=== PATIENT | female | born 1955 | race Caucasian/White ===

== ENCOUNTER 2016-10-30 18:04 | Emergency (ER) | payer BC ==
[2016-10-30 18:18] VITALS: BP 123/71
--- NOTE | 2016-10-30 20:00 | UC ---
Skin Complaint HPI - HPI Summary HPI Summary: Patient presents to with CC of tick bite to the left medial calf. She noticed it last evening and was able to dislodge it. Tick likely on skin for less than 24 hours. She was able to bring the tick it and it does not seem to be engorged. She notes to a small erythematous area around where the tick was located with no central clearing or EM rash. She states she was dx with Lyme disease many years ago, but turned out to be sarcoidosis. Denies joint pains, neck pain, KHAN or neuralgia pain. She is otherwise healthy. - History of Current Complaint Chief Complaint: UCSkin Time Seen by Provider: 10/30/16 19:23 Stated Complaint: TICK BITE Hx Obtained From: Patient ?: No Onset/Duration: Sudden Onset Skin Exposure Onset/Duration: Hours Ago Timing: Constant Onset Severity: Mild Current Severity: Mild Pain Intensity: 0 Pain Scale Used: 0-10 Numeric Location: Discrete - medial left calf Character: Redness Aggravating: Nothing Alleviating: Nothing Associated Signs & Symptoms: Positive: Negative Related History: Possible Reaction to: Insect - Allergy/Home Medications Allergies/Adverse Reactions: Allergies Allergy/AdvReac Type Severity Reaction Status Date / Time No Known Allergies Allergy Verified 10/30/16 18:51 Review of Systems Constitutional: Negative Skin: Rash - erythematous area around previous tick bite Respiratory: Negative Cardiovascular: Negative Neurovascular: Negative Musculoskeletal: Negative Neurological: Negative Psychological: Negative All Other Systems Reviewed And Are Negative: Yes PMH/Surg Hx/FS Hx/Imm Hx Previously Healthy: Yes - Surgical History Surgical History: Yes Surgery Procedure, Year, and Place: CHolecystectomy,D&C 2000,APPY APR 2013; - Family History Known Family History: Positive: Unknown - Social History Occupation: Employed Full-time Lives: With Family Alcohol Use: Occasionally Substance Use Type: None Smoking Status (MU): Never Smoked Tobacco Physical Exam Triage Information Reviewed: Yes Appearance: Well-Appearing, No Pain Distress, Well-Nourished Vital Signs: Initial Vital Signs Temp 98.8 F 10/30/16 18:17 Pulse 67 10/30/16 18:17 Resp 16 10/30/16 18:17 BP 123/71 10/30/16 18:17 Pulse Ox 98 10/30/16 18:17 Eye Exam: Normal Eyes: Positive: Conjunctiva Clear Dental Exam: Normal Neck exam: Normal Neck: Positive: Supple, Nontender, No Lymphadenopathy Respiratory Exam: Normal Respiratory: Positive: Chest non-tender, Lungs clear Cardiovascular Exam: Normal Cardiovascular: Positive: RRR Musculoskeletal Exam: Normal Musculoskeletal: Positive: Strength Intact Neurological Exam: Normal Neurological: Positive: Alert Psychological: Positive: Normal Response To Family, Age Appropriate Behavior Skin Exam: Normal Course/Dx - Course Course Of Treatment: Patient presents with tick bite to the medial side of the left calf without EM rash. Tick was brought in and not engorged. Per patient, tick was likely attached for less than 24 hours. Prophylactic dose not recommended to patient based on ISDA guidelines. She is OK with plan. Educated patient on Lyme and information given on prophylactic treatment. - Differential Diagnoses - Skin Complaint Differential Diagnoses: Tick Born Illness, Other - tick bite, lyme, insect, rash - Diagnoses Provider Diagnoses: Tick bite Discharge - Discharge Plan Condition: Stable Disposition: HOME Patient Education Materials: Tick Bite (ED) Referrals: Lalito Orozco MD [Primary Care Provider] - Additional Instructions: Approach to prophylaxis : According to the Infectious Diseases Society of [place] (IDSA) guidelines that recommend antibiotic prophylaxis only in patients who meet all of the following criteria: 1. Attached tick identified as an adult or nymphal I. scapularis tick (deer tick). 2. Tick is estimated to have been attached for 36 hours (by degree of engorgement or time of exposure). 3. Prophylaxis is begun within 72 hours of tick removal. Local rate of infection of ticks with B. burgdorferi is 20 percent if attached for over 48 hours (these rates of infection have been shown to occur in parts of [place], parts of the [facility], and parts of [place] and [place]). If you experience a tick and time of attachment is believed to be less than 36 hours, you may remove the tick with head intact and no need for prophylaxis. If over 36 hours, please come into UC. Prophylactic doxycycline is not recommended for ticks attached less than 36 hours.
== END 2016-10-30 20:01 | disposition home or self-care (01) ==
LOC: UCEAST 18:04
DX: S80.862A Insect bite (nonvenomous), left lower leg, initial encounter (principal)
CPT/HCPCS: 99211; G0463

== ENCOUNTER 2017-02-08 05:19 | Observation (INO) | payer BC ==
[2017-02-08] MEDS ORDERED: NS 0.9% 1000 ML* 1,000 ML IV ONE ×2 (06:01→06:39)
[2017-02-08] MEDS ORDERED: Morphine INJ* 4 MG/ML 1 ML CARPUJECT IV ONE (06:01)
[2017-02-08] MEDS ORDERED: Ondansetron INJ* 2 MG/ML VIAL IV ONE (06:01)
[2017-02-08 06:17] LABS: Hematocrit 39 % (35-47); Hemoglobin 13.5 g/dl (12.0-16.0); Mean Corpuscular HGB Conc 34 g/dl (31-36); Mean Corpuscular Hemoglobin 31 pg (27-31); Mean Corpuscular Volume 91 fL (80-97); Mean Platelet Volume 10 um3 (7.4-10.4); Red Blood Count 4.31 10^6/ul (4.0-5.4); Red Cell Distribution Width 13 % (10.5-15); White Blood Count 10.4 10^3/ul (3.5-10.8)
[2017-02-08 06:31] LABS: Albumin 4.3 g/dL (3.2-5.2); BUN/Creatinine Ratio 20.5 (8-20); Calcium 9.1 mg/dL (8.6-10.3); EGFR African American 104.6 (>60); EGFR Non-African American 81.3 (>60); Globulin 2.3 g/dL (2-4); Potassium 3.7 mmol/L (3.5-5.0); Total Bilirubin 0.4 mg/dL (0.2-1.0); Total Protein 6.6 g/dL (6.4-8.9)
--- NOTE | 2017-02-08 06:51 | ED ---
Monty Mcqueen Benjamin, scribed for Cyndi Mike MD on 02/08/17 at 0607 . HPI Chest Pain - HPI Summary HPI Summary: 61yo female FELIPAA after waking up with sudden onset CP today at 0400 hours. Pt describes the pain at initial onset as 8/10 but now 6/10. Pt had aching pain in her mid sternum that radiates to her back .Denies any pain in arms or neck. Pt wa also diaphoretic and clammy. Pt was given nitro by EMS, which helped partly with her CP. FHX NV. hx of arrhythmia - History of Current Complaint Chief Complaint: EDChestPainROMI Time Seen by Provider: 02/08/17 05:29 Hx Obtained From: Patient Onset/Duration: Started Hours Ago, Still Present Timing: Constant Initial Severity: Moderate Current Severity: Mild Pain Intensity: 5 Pain Scale Used: 0-10 Numeric Chest Pain Location: Mid Sternal Chest Pain Radiates: Yes Chest Pain Radiates To:: Back Character: Dull/Aching Aggravating Factor(s): Nothing Alleviating Factor(s): NTG 123 Associated Signs and Symptoms: Positive: Chest Pain, Diaphoresis, Back Pain - Allergy/Home Medications Allergies/Adverse Reactions: Allergies Allergy/AdvReac Type Severity Reaction Status Date / Time No Known Allergies Allergy Verified 02/08/17 05:24 PMH/Surg Hx/FS Hx/Imm Hx Endocrine/Hematology History: Denies: Hx Diabetes Cardiovascular History: Reports: Other Cardiovascular Problems/Disorders - hx of arrhythmia Denies: Hx Congestive Heart Failure, Hx Hypertension, Hx Pacemaker/ICD Respiratory History: Reports: Other Respiratory Problems/Disorders - sarcoidosis 1988 treated ok since Denies: Hx Asthma GI History: Denies: Other GI Disorders - hx of parasites treated History: Denies: Hx Renal Disease Sensory History: Denies: Hx Hearing Aid Psychiatric History: Denies: Hx Panic Disorder - Cancer History Hx Radiation Therapy: No - Surgical History Surgery Procedure, Year, and Place: CHolecystectomy,D&C 2000,APPApr 2013; Infectious Disease History: No Infectious Disease History: Reports: History Other Infectious Disease - Dysentary 1986 Denies: Traveled Outside the [place] in Last 30 Days - Family History Known Family History: Positive: Cardiac Disease - [place] - Social History Occupation: Employed Full-time Lives: With Family Alcohol Use: Occasionally Substance Use Type: Reports: None Smoking Status (MU): Never Smoked Tobacco Review of Systems Positive: Skin Diaphoresis Eyes: Negative ENT: Negative Positive: Chest Pain Respiratory: Negative Gastrointestinal: Negative Genitourinary: Negative Positive: Myalgia - back pain Skin: Negative Neurological: Negative Psychological: Normal All Other Systems Reviewed And Are Negative: Yes Physical Exam Vital Signs On Initial Exam: Initial Vitals Temp Pulse Resp BP Pulse Ox 97.5 F 76 16 130/75 96 02/08/17 05:22 02/08/17 05:22 02/08/17 05:22 02/08/17 05:22 02/08/17 05:22 - Malinda Coma Scale Coma Scale Total: 15 Diagnostics - Vital Signs Vital Signs Temp Pulse Resp BP Pulse Ox 02/08/17 05:33 98 02/08/17 05:24 97.5 F 76 16 130/75 96 02/08/17 05:22 97.5 F 76 16 130/75 96 - Laboratory Lab Results: Lab Results 02/08/17 02/08/17 02/08/17 Range/Units 05:30 05:30 05:30 WBC 10.4 (3.5-10.8) 10^3/ul RBC 4.31 (4.0-5.4) 10^6/ul Hgb 13.5 (12.0-16.0) g/dl Hct 39 (35-47) % MCV 91 (80-97) fL MCH 31 (27-31) pg MCHC 34 (31-36) g/dl RDW 13 (10.5-15) % Plt Count 219 (150-450) 10^3/ul MPV 10 (7.4-10.4) um3 Neut % (Auto) 77.8 (38-83) % Lymph % (Auto) 12.7 L (25-47) % [place] % (Auto) 8.4 (1-9) % Eos % (Auto) 0.8 (0-6) % Baso % (Auto) 0.3 (0-2) % Absolute Neuts (auto) 8.1 H (1.5-7.7) 10^3/ul Absolute Lymphs (auto) 1.3 (1.0-4.8) 10^3/ul Absolute Monos (auto) 0.9 H (0-0.8) 10^3/ul Absolute Eos (auto) 0.1 (0-0.6) 10^3/ul Absolute Basos (auto) 0 (0-0.2) 10^3/ul Absolute Nucleated RBC 0 10^3/ul Nucleated RBC % 0 Sodium 138 (133-145) mmol/L Potassium 3.7 (3.5-5.0) mmol/L Chloride 106 (101-111) mmol/L Carbon Dioxide 26 (22-32) mmol/L Anion Gap 6 (2-11) mmol/L BUN 15 (6-24) mg/dL Creatinine 0.73 (0.51-0.95) mg/dL Est GFR ( Amer) 104.6 (>60) Est GFR (Non-Af Amer) 81.3 (>60) BUN/Creatinine Ratio 20.5 H (8-20) Glucose 133 H (70-100) mg/dL Lactic Acid 2.7 H* (0.5-2.0) mmol/L Calcium 9.1 (8.6-10.3) mg/dL Total Bilirubin 0.40 (0.2-1.0) mg/dL AST Pending ALT 20 (7-52) U/L Alkaline Phosphatase 53 (34-104) U/L Troponin I 0.00 (<0.04) ng/mL Total Protein 6.6 (6.4-8.9) g/dL Albumin 4.3 (3.2-5.2) g/dL Globulin 2.3 (2-4) g/dL Albumin/Globulin Ratio 1.9 (1-3) Result Diagrams: 02/08/17 05:30 02/08/17 05:30 Lab Statement: Any lab studies that have been ordered have been reviewed, and results considered in the medical decision making process. - Radiology CXR Xray Interpretation: No Acute Changes Radiology Interpretation Completed By: ED Physician - EKG 0531. Cardiac Rate: NL - 70bpm EKG Rhythm: Sinus Rhythm ST Segment: Normal Ectopy: None Chest Pain Course/Dx - Course Course Of Treatment: Reviewed pts medication and allergy lists. Blood pressure noted. pt with elevated lactic acid given that pain radiated to her back will do cta chest abd pelvis and if neg will have pt admitted as an obv - Diagnoses Provider Diagnoses: Chest pain Discharge - Discharge Plan Condition: Stable Disposition: OTHER Discharge Disposition Comment: to be determined signed out to Dr. Wiggins Referrals: Lalito Orozco MD [Primary Care Provider] - The documentation as recorded by the Monty juarez Benjamin accurately reflects the service I personally performed and the decisions made by me, Cyndi Mike MD.
[2017-02-08] MEDS ORDERED: Iohexol 350* (CONTRAST) 500 ML MDV IV ONE (07:36)
--- NOTE | 2017-02-08 08:13 | RAD ---
HISTORY: Chest pain radiating to back COMPARISONS: May 02, 2013 TECHNIQUE: Multiple contiguous axial CT scans were obtained of the chest, abdomen, and pelvis after the administration of intravenous contrast. Coronal and sagittal multiplanar reformations are submitted for review.. Oral contrast was not administered. 3-D volumetric reconstructions of the aorta are also submitted for review FINDINGS: CHEST NECK AND THYROID: The lower neck and thyroid are unremarkable. CHEST WALL: There is no lower cervical, axillary, or supraclavicular lymphadenopathy by size criteria. HEART AND PERICARDIUM: The heart is unremarkable. AORTA AND PULMONARY VASCULATURE: The aorta and pulmonary vasculature are normal. There is no intimal flap to suggest dissection. There is no pulmonary arterial filling defect to suggest pulmonary embolism. MEDIASTINUM: There is no mediastinal lymphadenopathy by size criteria. POLO: There is no hilar lymphadenopathy by size criteria. AIRWAY AND ESOPHAGUS: The airway is unremarkable, without endobronchial filling defect. The esophagus is grossly normal. LUNG PARENCHYMA: The lungs are clear. PLEURA: No pleural abnormalities are noted. BONES AND SOFT TISSUES: No bone or soft tissue abnormalities are noted. ABDOMEN/PELVIS: LIVER: The liver is normal in shape, size, contour, and attenuation. BILE DUCTS: There is no intrahepatic or extrahepatic biliary dilatation. GALLBLADDER: The gallbladder is normal, without pericholecystic inflammatory change. PANCREAS: The pancreas is normal, without mass or ductal dilatation. SPLEEN: Normal in size and appearance. UPPER GI TRACT: Evaluation of the gastrointestinal tract is limited by incomplete gastric distention. The upper GI tract is unremarkable. SMALL BOWEL \T\ MESENTERY: The small bowel is normal in contour, course, and caliber. There is no obstruction or dilatation. COLON: The colon is normal in contour, course, caliber. There is no pericolonic inflammatory change. Surgical clips are noted adjacent to the cecum ADRENALS: Normal bilaterally. KIDNEYS: The kidneys are normal in shape, size, contour, and axis. There is no hydronephrosis or nephrolithiasis. BLADDER: The bladder is smooth in contour. PELVIC ORGANS: The uterus and adnexa are grossly normal for technique. AORTA: There is no intimal flap to suggest dissection. There is no aneurysmal dilatation. The splanchnic vessels are normal. IVC: Unremarkable LYMPH NODES: There is no lymphadenopathy by size criteria. ABDOMINAL WALL: There is no evidence for abdominal wall hernia. BONES: There is mild facet osteoarthritic change of the lower lumbar spine OTHER: None IMPRESSION: NO AORTIC ANEURYSM OR DISSECTION. NO ACUTE CT PATHOLOGY OF THE VISUALIZED CHEST, ABDOMEN, OR PELVIS.
--- NOTE | 2017-02-08 08:23 | RAD ---
HISTORY: Chest pain COMPARISONS: April 22, 2004 VIEWS: 1: frontal portable view of the chest at 4:51 AM FINDINGS: LINES AND TUBES: None. CARDIOMEDIASTINAL SILHOUETTE: The cardiomediastinal silhouette is normal for portable technique. PLEURA: The costophrenic angles are sharp. No pleural abnormalities are noted. LUNG PARENCHYMA: The lungs are clear. ABDOMEN: The upper abdomen is clear. There is no subphrenic gas. BONES AND SOFT TISSUES: No bone or soft tissue abnormalities are noted. IMPRESSION: NO ACTIVE CARDIOPULMONARY DISEASE.
[2017-02-08] MEDS ORDERED: Al Hydrox/Mg Hydrox/Simet LIQ* 30 ML UDC PO ONE (08:48)
--- NOTE | 2017-02-08 08:53 | ADMNOTE ---
Subjective Date of Service: 02/08/17 Interval History: ADMISSION HISTORY AND PHYSICAL EXAM: Allergies Allergy/AdvReac Type Severity Reaction Status Date / Time No Known Allergies Allergy Verified 02/08/17 05:24 Home Medications Medication Instructions Recorded Confirmed Type NK [No Home Medications Reported] 02/08/17 02/08/17 History HPI: Taniya was woke about 4 AM with epigastric pain Some nausea, some diaphoresis. Has awoken with GERD pain in past, never this severe or persisitent. She took no meds at home for this. She ate some chips about 2 hrs before bedtime last evening. She takes Tums for her GERD. Family History: Findings - Father of [place] age 59, smoked. Mother A&W. Sister has esophageal ca. Social History: Findings - alcohol or tobacco use. Lives with her who is her SDM. Teaches at . Past Medical History: Findings - Appy, naomi. Sarcoidosis in her 30's. 1 child. GERD. Review of Systems - Measurements Intake and Output: Intake and Output Last 24 Hours 02/06/17 02/07/17 02/08/17 02/09/17 06:59 06:59 06:59 06:59 Intake Total 1000 1000 Balance 1000 1000 Weight 178 lb Intake: IV Fluids 1000 1000 - Review of Systems Constitutional Symptoms: Negative: Weight Gain, Weight Loss, Weakness, Fatigue, Fever, Night Sweats, Unexplained Falls, Other Dermatology: Positive: Normal HEENT: Positive: Normal Eyes: Positive: Normal Pulmonary: Positive: Normal Cardiology: Positive: Chest Pain Gastroenterology: Positive: Nausea Genital - Urinary: Negative: Normal, Dysuria, Hematuria, Polyuria, Nocturia, Other Musculoskeletal: Negative: Joint Pain, Joint Stiffness, Arthritis, Osteoporosis, Low Back Pain , Sciatica, Joint Deformities, Kyphoscoliosis, Other Endocrinology: Positive: Normal Hematologic/Lymphatic: Negative: Anemia, Easy Brusing, Hx Leukemia, Hx Lymphoma, Use of Anticoagulant, Use of Antiplatelet Drugs, Other Neurology: Positive: Normal Psychiatry: Positive: Normal Allergic/Immunologic: Negative: Hx Anaphylaxis, Hx Angioedema, Hx Environmental, Hx Seasonal, Athsma, Hx HIV, Immunocompromise, Swollen Glands LymphNodes, Other Objective Active Medications: Enoxaparin Sodium (Lovenox(*)) 40 mg SUBCUT Q24H [facility] Vital Signs 02/08/17 02/08/17 02/08/17 05:22 05:24 05:33 Temperature 97.5 F 97.5 F Pulse Rate 76 76 Respiratory 16 16 Rate Blood Pressure 130/75 130/75 (mmHg) O2 Sat by Pulse 96 96 98 Oximetry 02/08/17 02/08/17 02/08/17 06:09 07:35 08:00 Temperature Pulse Rate 85 81 Respiratory 16 10 Rate Blood Pressure 120/69 119/74 (mmHg) O2 Sat by Pulse 98 97 Oximetry Oxygen Devices in Use Now: None Appearance: Alert, supine on ED stretcher. In good spirits. Looks comfortable. Eyes: No Scleral Icterus Ears/Nose/Mouth/Throat: Clear Oropharnyx, Mucous Membranes Moist Neck: NL Appearance and Movements; NL JVP, No Thyroid Enlargement, Masses Respiratory: Symmetrical Chest Expansion and Respiratory Effort, Clear to Auscultation, Clear to Percussion Cardiovascular: NL Sounds; No Murmurs; No JVD, RRR, No Edema, - Abdominal: NL Sounds; No Tenderness; No Distention, No Hepatosplenomegaly, - Extremities: No Edema, No Clubbing, Cyanosis, - Skin: No Rash or Ulcers, No Nodules or Sclerosis, - Neurological: Alert and Oriented x 3, NL Sensation Result Diagrams: 02/08/17 05:30 02/08/17 05:30 Additional Lab and Data: Lab Results 02/08/17 02/08/17 02/08/17 Range/Units 05:30 05:30 05:30 WBC 10.4 (3.5-10.8) 10^3/ul RBC 4.31 (4.0-5.4) 10^6/ul Hgb 13.5 (12.0-16.0) g/dl Hct 39 (35-47) % MCV 91 (80-97) fL MCH 31 (27-31) pg MCHC 34 (31-36) g/dl RDW 13 (10.5-15) % Plt Count 219 (150-450) 10^3/ul MPV 10 (7.4-10.4) um3 Neut % (Auto) 77.8 (38-83) % Lymph % (Auto) 12.7 L (25-47) % [place] % (Auto) 8.4 (1-9) % Eos % (Auto) 0.8 (0-6) % Baso % (Auto) 0.3 (0-2) % Absolute Neuts (auto) 8.1 H (1.5-7.7) 10^3/ul Absolute Lymphs (auto) 1.3 (1.0-4.8) 10^3/ul Absolute Monos (auto) 0.9 H (0-0.8) 10^3/ul Absolute Eos (auto) 0.1 (0-0.6) 10^3/ul Absolute Basos (auto) 0 (0-0.2) 10^3/ul Absolute Nucleated RBC 0 10^3/ul Nucleated RBC % 0 Sodium 138 (133-145) mmol/L Potassium 3.7 (3.5-5.0) mmol/L Chloride 106 (101-111) mmol/L Carbon Dioxide 26 (22-32) mmol/L Anion Gap 6 (2-11) mmol/L BUN 15 (6-24) mg/dL Creatinine 0.73 (0.51-0.95) mg/dL Est GFR ( Amer) 104.6 (>60) Est GFR (Non-Af Amer) 81.3 (>60) BUN/Creatinine Ratio 20.5 H (8-20) Glucose 133 H (70-100) mg/dL Lactic Acid 2.7 H* (0.5-2.0) mmol/L Calcium 9.1 (8.6-10.3) mg/dL Total Bilirubin 0.40 (0.2-1.0) mg/dL AST Pending ALT 20 (7-52) U/L Alkaline Phosphatase 53 (34-104) U/L Troponin I 0.00 (<0.04) ng/mL Total Protein 6.6 (6.4-8.9) g/dL Albumin 4.3 (3.2-5.2) g/dL Globulin 2.3 (2-4) g/dL Albumin/Globulin Ratio 1.9 (1-3) Assess/Plan/Problems-Billing Assessment: - Patient Problems (1) Chest pain Current Visit: Yes Status: Acute Code(s): R07.9 - CHEST PAIN, UNSPECIFIED SNOMED Code(s): 65062877 Comment: Suspect GERD as cause. If second troponin neg will proceed with stress echo. (2) GERD (gastroesophageal reflux disease) Current Visit: Yes Status: Acute Code(s): K21.9 - GASTRO-ESOPHAGEAL REFLUX DISEASE WITHOUT ESOPHAGITIS SNOMED Code(s): 101062202 Comment: GI cocktail and IV pantoprazole x 1 ordered. Would have take omeprazole 20 mg daily for 2 weeks, be more strict on her dietary modifications for GERD.
[2017-02-08] MEDS ORDERED: Enoxaparin(*) 40 MG/0.4 ML SYR SUBCUT SCH (09:00)
[2017-02-08] MEDS ORDERED: Pantoprazole IV* 40 MG IV ONE (09:00)
[2017-02-08 13:14] VITALS: BP 101/59
--- NOTE | 2017-02-09 05:39 | DS ---
CC: Dr. Orozco * DISCHARGE SUMMARY: DATE OF ADMISSION: DATE OF DISCHARGE: 02/08/17 HISTORY: This 61-year-old woman presented with epigastric pain radiating up to the left chest. The pain woke her at about 4 a.m. She noted that less than 2 hours before bedtime, she had eaten a bag of Doritos or another type of chip. She has had trouble with GERD off and on before, but this may have been her worst episode. She generally takes Tums, long time ago she took omeprazole. The patient was admitted to the telemetry unit. She had three troponins, all of which were normal. She had a stress echo, which was also normal. I am prescribing omeprazole 20 mg daily, she should take this every day for 2 weeks, then daily as needed. FINAL DIAGNOSIS: Gastroesophageal reflux disease. DISCHARGE MEDICATIONS: Omeprazole as above. [id number]/CPS #: [id number] MTDD
== END 2017-02-08 16:44 | disposition home or self-care (01) ==
LOC: ED 05:19 → MEDTELE 08:37
PROVIDERS: ADMIT Internal Medicine; ATTEND Internal Medicine
DX: K21.9 Gastro-esophageal reflux disease without esophagitis (principal); R07.9 Chest pain, unspecified
CPT/HCPCS: 36415; 71010; 71275; 74174; 80053; 83605; 83690; 84484; 85025; 93005; 93350; 96361; 96372; 96374; 96375; 99283; A9270-GY; G0378; J1650; J2270; J2405; Q9967